=== PATIENT | female | born 1995 | race Caucasian/White ===

== ENCOUNTER → 2024-11-24 | Day surgery (SDC) | payer OTHER ==
[~2024-11-24] MED LIST: Sodium Bicarbonate 2.5 MEQ/5 ML SDV ONE
== END ==
LOC: CSHULT 09:59
PROVIDERS: ATTEND Nurse Practitioner Family
PROC: 0G9G3ZX Drainage of Left Thyroid Gland Lobe, Percutaneous Approach, Diagnostic (ICD-10-PCS; principal; 2024-11-24)
DX: E04.1 Nontoxic single thyroid nodule (principal); B02.9 Zoster without complications
CPT/HCPCS: 10005; 88173